=== PATIENT | female | born 1990 | race Caucasian/White ===

== ENCOUNTER 2024-03-31 14:25 | Emergency (ER) | payer OTHER, MEDICAID ==
[~2024-03-31] VITALS: Ht 157.5 cm; Wt 68.9 kg
[2024-03-31 14:45] VITALS: BP 98/50; PULSE 80; RESP 16; TEMP 98.3; O2SAT 96
[2024-03-31] MEDS: NACL 0.9% 1,000 ML IV ONE (15:54)
[2024-03-31 17:01] LABS: BILIRUBIN,URINE NEGATIVE (NEGATIVE); BLOOD, URINE NEGATIVE (NEGATIVE); COLOR,URINE YELLOW (YELLOW); LEUKOCYTE ESTERASE ,URINE 1+ (NEGATIVE); NITRITE, URINE NEGATIVE (NEGATIVE); PROTEIN,URINE NEGATIVE (NEGATIVE); UGLUCOSE NEGATIVE (NEGATIVE)
[2024-03-31 17:04] LABS: APPEARANCE,URINE CLOUDY (CLEAR)
[2024-03-31 17:11] LABS: RBC,URINE 0 /HPF (0-5); WBC,URINE 0-5 /HPF (0-5)
[2024-03-31 17:12] LABS: BACTERIA,URINE 1+ /HPF (None Seen); MUCUS,URINE None Seen /LPF (None Seen); SQUAMOUS EPITHELIAL CELL,UR 4-10 (MOD) /LPF (0-3 (FEW))
[2024-03-31] MEDS ORDERED: CEPH-588 PO (17:21)
[2024-03-31 17:29] VITALS: BP 98/50; PULSE 61; RESP 14; TEMP 97.1; O2SAT 96
== END 2024-03-31 17:30 | disposition home or self-care (01) ==
LOC: MED 14:25
DX: O9A.212 Injury, poisoning and certain other consequences of external causes complicating pregnancy, second trimester (principal); O23.42 Unspecified infection of urinary tract in pregnancy, second trimester; S39.81XA Other specified injuries of abdomen, initial encounter; N39.0 Urinary tract infection, site not specified; Z3A.18 18 weeks gestation of pregnancy; V49.88XA Car occupant (driver) (passenger) injured in other specified transport accidents, initial encounter; Y93.89 Activity, other specified; Y92.89 Other specified places as the place of occurrence of the external cause; Y99.8 Other external cause status
CPT/HCPCS: 76805; 81001; 87086; 96360; 99284; J7030; Q0092